=== PATIENT | male | born 1970 | race Caucasian/White ===

== ENCOUNTER 2020-07-28 07:06 | Emergency (ER) | payer BC ==
[~2020-07-28] VITALS: Ht 180.3 cm; Wt 116.1 kg
[2020-07-28] MEDS ORDERED: ANUSOL-HC30 GM TOP (07:45)
[2020-07-28 07:52] VITALS: BP 134/81
== END 2020-07-28 07:53 | disposition home or self-care (01) ==
LOC: M.ERS 07:06
DX: K64.4 Residual hemorrhoidal skin tags (principal); Z91.048 Other nonmedicinal substance allergy status